=== PATIENT | female | born 1950 | race Caucasian/White ===

== ENCOUNTER 2018-02-23 07:35 | Emergency (ER) | payer MEDICARE, BC ==
[~2018-02-23] VITALS: Ht 167.6 cm; Wt 78.0 kg
[2018-02-23] MEDS ORDERED: ketorolac trometh inj. 60 MG/2 ML VIAL IM ONE (08:25)
[2018-02-23] MEDS ORDERED: cyclobenzaprine 10mg tablet PO ONE (08:25)
[2018-02-23] MEDS ORDERED: HYDROcodone/acetaminophen 10/325mg tab PO ONE (09:10)
[2018-02-23] MEDS ORDERED: LIDOcaine 5% patch TP ONE (09:15)
[2018-02-23 09:27] VITALS: BP 125/65
== END 2018-02-23 09:28 | disposition home or self-care (01) ==
LOC: ER 07:37
DX: M62.838 Other muscle spasm (principal); G89.29 Other chronic pain; Z98.890 Other specified postprocedural states
CPT/HCPCS: 96372; 99283; J1885

== ENCOUNTER 2023-11-07 05:15 | Emergency (ER) | payer MEDICARE, BC ==
[~2023-11-07] VITALS: Ht 165.1 cm; Wt 90.0 kg
[2023-11-07 06:20] LABS: BILIRUBIN,URINE NEGATIVE (Neg); CLARITY,URINE SLIGHTLY CLOUDY (Clear); COLOR,URINE YELLOW (Yellow); GLUCOSE, URINE NEGATIVE (Neg); KETONES,URINE NEGATIVE (Neg); LEUKOCYTE ESTERASE ,URINE NEGATIVE (Neg); NITRITES, URINE NEGATIVE (Neg); OCCULT BLOOD,URINE NEGATIVE (Neg); PH,URINE 5.5 (4.8-8.0); PROTEIN,URINE NEGATIVE (Neg); UROBILINOGEN,URINE 0.2 E.U/dL (0.2-1.0)
[2023-11-07 06:26] LABS: UA COLLECTION TYPE VOIDED
[2023-11-07 06:27] LABS: BACTERIA,URINE 1+ /HPF (Neg); MUCUS STRANDS NONE SEEN /LPF (Neg); RBC,URINE 0-2 /HPF (0-2); SQUAMOUS EPITHELIAL CELL,UR MODERATE /LPF (FEW); WBC,URINE 0-4 /HPF (0-4)
[2023-11-07 06:28] LABS: YEAST MODERATE /HPF (NEGATIVE)
[2023-11-07 06:34] VITALS: TEMP 99.1
[2023-11-07 07:04] LABS: BASOPHILS % (AUTO) 0.5 % (0-1); EOSINOPHILS # (AUTO) 0.4 X10'3 (0-0.9); EOSINOPHILS % (AUTO) 5.4 % (0-6); HEMATOCRIT 25.1 % (35.0-45.0); HEMOGLOBIN 7.7 g/dl (12.0-16.0); LYMPHOCYTES # (AUTO) 1.4 X10'3 (1.1-4.8); MEAN CORPUSCULAR HEMOGLOBIN 22.3 PG (27.0-31.0); MEAN CORPUSCULAR HGB CONC 30.6 g/dL (33.0-36.5); MEAN PLATELET VOLUME 7.2 FL (7.4-10.4); MONOCYTES # (AUTO) 0.7 X10'3 (0-0.9); MONOCYTES % (AUTO) 8.7 % (2-12); NEUTROPHILS # (AUTO) 5.2 X10'3 (1.8-7.7); NEUTROPHILS % (AUTO) 67.4 % (42-75); PLATELET COUNT 438 X10'3 (140-440); RED BLOOD COUNT 3.44 X10'6 (4.20-5.60); RED CELL DISTRIBUTION WIDTH 19.2 % (11.5-14.5); WHITE BLOOD COUNT 7.7 X10'3 (4.5-11.0)
[2023-11-07 07:48] LABS: ALANINE AMINOTRANSFERASE 17 U/L (12-78); ALBUMIN 2.8 G/DL (3.4-5.0); ALBUMIN/GLOBULIN RATIO 0.7 (1.1-1.5); ALKALINE PHOSPHATASE 67 IU/L (46-116); ANION GAP 10 (8-16); ASPARTATE AMINO TRANSFERASE 19 U/L (10-37); BILIRUBIN,TOTAL 0.6 MG/DL (0.1-1.0); BLOOD UREA NITROGEN 20 MG/DL (7-18); CALCIUM 8.6 MG/DL (8.5-10.1); CHLORIDE 106 MMOL/L (99-107); CREATININE 1.33 MG/DL (0.40-0.90); GLUCOSE 113 MG/DL (70-104); POTASSIUM 4.3 MMOL/L (3.5-5.1); SODIUM 139 MMOL/L (135-145); TOTAL CARBON DIOXIDE 23.2 MMOL/L (24-32); TOTAL PROTEIN 6.8 G/DL (6.4-8.2); eCRCL 35 ML/MIN; eGFR 39 ML/MIN
[2023-11-07 10:35] VITALS: BP 136/69; PULSE 79; RESP 18; O2SAT 98
[2023-11-07 11:08] LABS: ANISOCYTOSIS 2+; ELLIPTOCYTES 1+; HYPOCHROMASIA 1+; MICROCYTOSIS 1+; PLATELET ESTIMATE NORMAL; POLYCHROMASIA FEW
== END 2023-11-07 10:41 | disposition home or self-care (01) ==
LOC: ER 05:15
DX: R41.82 Altered mental status, unspecified (principal); Z20.822 Contact with and (suspected) exposure to COVID-19; T50.995A Adverse effect of other drugs, medicaments and biological substances, initial encounter; Y92.89 Other specified places as the place of occurrence of the external cause
CPT/HCPCS: 36415; 70450; 71045; 80053; 80329; 81001; 83605; 84145; 85008; 85025; 87040; 87502; 87503; 87811; 93005; 99285

== ENCOUNTER 2024-03-12 15:33 | Outpatient (CLI) | payer MEDICARE, BC ==
[2024-03-12 18:50] LABS: EOSINOPHILS,BODY FLUID 8 %; LYMPHOCYTES,BODY FLUID 15 %; MONOCYTES,BODY FLUID 11 %; NEUTROPHILS,BODY FLUID 66 %
[2024-03-12 18:51] LABS: BFSOURCE OTHER
[2024-03-12 18:52] LABS: BFAPPEAR CLOUDY
[2024-03-12 18:53] LABS: BF RBC COUNT 15000 /CU MM; BF WBC COUNT 24 /CU MM (0-1000); BFCOLOR RED; BFVOLUME 9 ML
== END 2024-03-12 23:59 | disposition home or self-care (01) ==
LOC: LAB SPEC 15:33
PROVIDERS: ATTEND Orthopaedic Surgery
DX: Z01.812 Encounter for preprocedural laboratory examination (principal); Z96.651 Presence of right artificial knee joint
CPT/HCPCS: 87070; 89051